=== PATIENT | female | born 1935 | race Caucasian/White ===

== ENCOUNTER 2019-03-01 07:08 | Outpatient (CLI) | payer OTHER ==
[~2019-03-01 07:08] MED LIST: CIPRO500 MG PO; DIOVAN40 MG; LEVSIN/SL0.125 MG PO; NORVASC2.5 M1; PROTONIX40 MG PO; SYNTHROID50 MCG; URSODIOL
== END 2019-03-01 07:26 | disposition home or self-care (01) ==
LOC: TOM 07:08
DX: R19.5 Other fecal abnormalities (principal)